=== PATIENT | female | born 1990 | race Caucasian/White ===

== ENCOUNTER 2017-09-01 20:01 | Emergency (ER) | payer BC ==
--- NOTE | 2017-09-01 20:18 | EDM.PDOC ---
ED HPI GENERAL MEDICAL PROBLEM - General Chief Complaint: General Stated Complaint: fever Time Seen by Provider: 09/01/17 20:15 Source of Information: Reports: Patient, Old Records ([facility] chart/EMR) History Limitations: Reports: No Limitations - History of Present Illness INITIAL COMMENTS - FREE TEXT/NARRATIVE: Patient drove herself to the emergency room for evaluation of fever and chills with temperature of 99 agrees with symptoms starting at about 16:00 hours. Patient did take 600 mg of ibuprofen at 17:30 hours. Note that the patient did have a minor head concussion on 08/30 after [place] off [place] tractor [place] with bruises of her buttocks region bilaterally. The patient was not evaluated until yesterday by her regular provider, La Mckenzie PA-C, at [facility] in [place]. She apparently had a borderline UA during that visit, although was not started on any medications. Wet prep was also collected at that time. She denies any current gross hematuria, dysuria, or other UTI symptoms. No recent history of abdominal pain, heartburn, nausea, diarrhea, melena, gross hematochezia, or any food intolerance, including fatty foods, etc.. The patient also denies any recent fever, cough, wheezing, dyspnea , etc.. She rates her pain from her bruises and also some nonspecific neck pain at 6/10. Onset: Today, Gradual Onset Date: 09/01/17 Onset Time: 16:00 Duration: Getting Worse Location: Reports: Lower Extremity, Left, Lower Extremity, Right. Denies: Head , Face, Neck, Chest, Abdomen, Back, Generalized, Radiates to Quality: Reports: Same as Previous Episode Severity: Moderate Improves with: Reports: Rest Worsens with: Reports: Movement Context: Reports: Trauma (As above). Denies: Sick Contact Associated Symptoms: Reports: Fever/Chills. 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 Denies: Allergic Rhinitis, Hard of Hearing, Impaired Vision, Retinal Detachment Cardiovascular History: Reports: None. Denies: Afib, Aneurysm, Arrhythmia, Blood Clots/VTE/DVT, CAD, Heart Murmur, High Cholesterol, Hypertension, Syncope Respiratory History: Reports: None. Denies: Asthma, COPD, Intubation, Previous , PE, Pneumothorax, Sleep Apnea Gastrointestinal History: Reports: None. Denies: Celiac Disease, Cholelithiasis , Chronic Constipation, Chronic Diarrhea, Fecal Incontinence, GERD, GI Bleed, Hepatitis, Inflammatory Bowel Disease, Irritable Bowel Syndrome, Jaundice, Pancreatitis, PUD Genitourinary History: Reports: UTI, Recurrent. Denies: Acute Renal Failure, Chronic Renal Insuffiency, Renal Calculus, STD, Urinary Incontinence ACIDITY TESTER History: Reports: Spontaneous : 4 Para: 3 LMP (Approximate): Other (See Below) Other ACIDITY TESTER History: SAB during first trimester requiring a D&C as below. Otherwise Full term without complications during pregnancies or deliveries. LMP on 08/21/17. Musculoskeletal History: Reports: Arthritis, Back Pain, Chronic, Fracture, Neck Pain, Chronic, Osteoarthritis, Other (See Below). Denies: Gout, RA, SLE Other Musculoskeletal History: Right distal radial ulnar fracture on 10/04/01 questionable borderline additional right distal humeral/elbow fracture at that time with no surgery required. Right proximal radial head/elbow fracture on 04/25 with closed reduction of dislocation at that time. SI joint discomfort with additional recurrent torticollis. Right-sided carpal tunnel syndrome. Neurological History: Reports: None, Concussion, Head Trauma, Other (See Below) . Denies: Cerebral Aneurysms, Headaches, Chronic, Migraines, Seizure Other Neuro History: Minor head concussion on 08/30/17 with no loss of consciousness. Psychiatric History: Reports: Anxiety, Depression. Denies: Abuse, Victim of, ADD, ADHD, Addiction, Psych Hospitalization(s), PTSD, Suicide Attempt, Suicidal Ideation Endocrine/Metabolic History: Reports: None. Denies: Diabetes, Gestational, Diabetes, Type I, Diabetes, Type II, Diabetes Mellitus, Type 3c, Hypothyroidism , IDDM Hematologic History: Reports: None. Denies: Anemia, Blood Transfusion(s), Iron Deficiency Immunologic History: Reports: None. Denies: AIDS, HIV, SLE Oncologic (Cancer) History: Reports: None. Denies: Basal Cell Carcinoma, Cervix , Hodgkin's Lymphoma, Leukemia, Lymphoma, Malignant Melanoma, Non-Hodgkin's Lymphoma, Squamous Cell Carcinoma Dermatologic History: Reports: Eczema, Other (See Below). Denies: Psoriasis Other Dermatologic History: Eczema treated with OTC medicines during the winter. - Infectious Disease History Infectious Disease History: Reports: Chicken Pox, Mononucleosis (Mononucleosis 3 at ages 18, 19, and 21.). Denies: C-Difficile, Measles, Meningitis, MRSA, Mumps, Pertussis (Whooping Cough), Rheumatic Fever, Rubella, Scarlet Fever, Shingles, VRE - Past Surgical History Head Surgeries/Procedures: Reports: None HEENT Surgical History: Denies: Adenoidectomy, Eye Surgery, Laser Surgery, LASIK , Myringotomy w Tube(s), Naso-Sinus Surgery, Oral Surgery, Tonsillectomy Cardiovascular Surgical History: Reports: None. Denies: Varicose Respiratory Surgical History: Reports: None. Denies: Thoracentesis GI Surgical History: Reports: None. Denies: Appendectomy, Cholecystectomy, Colonoscopy, EGD, Hernia, Abdominal, Hernia, Inguinal, Hernia Repair/Other Female Surgical History: Reports: D&C, Other (See Below). Denies: Tubal Ligation Other Female Surgeries/Procedures: D&C secondary to SAB at age 19 Endocrine Surgical History: Reports: None. Denies: Thyroid Biopsy Neurological Surgical History: Reports: None. Denies: C-Spine, Discectomy, Laminectomy, Lumbar Spine, Sacral Spine, Spinal Fusion, Thoracic Spine, Vertebroplasty Musculoskeletal Surgical History: Reports: None. Denies: Arthroscopic Procedure , Carpal Tunnel, Ganglion Cyst, Joint Replacement, ORIF, Shoulder Surgery Oncologic Surgical History: Reports: None Dermatological Surgical History: Reports: None - Past Imaging History Past Imaging History: Reports: Ultrasound (OB ultrasounds.), Venous Doppler ( Left leg venous Doppler study on 05/27/11) Social & Family History - Tobacco Use Smoking Status *Q: Current Every Day Smoker Tobacco Use Within Last Twelve Months: No Used Tobacco, but Quit: No Smoking Cessation Information Provided To Patient: No Second Hand Smoke Exposure: No Second Hand Smoke Education Provided: No - Caffeine Use Caffeine Use: Reports: Coffee (One cup per day), Soda (1 Soda per day), Tea ( One cup of tea per week). Denies: Energy Drinks - Alcohol Use Alcohol Use History: Yes Days Per Week of Alcohol Use: 0 Number of Drinks Per Day: 6 Number of Drinks Per Day Comment: Usually beer. No previous DWIs, problems with alcohol abuse, etc. Total Drinks Per Week: 0 Alcohol Use in Last Twelve Months: Yes Alcohol Use Frequency: Binges - Recreational Drug Use Recreational Drug Use: No Drug Use in Last 12 Months: No Recreational Drug Type: Denies: Amphetamines (Speed), Cocaine, Heroin, Inhalants (Glues, Solvents, Aerosols), LSD (Acid), Marijuana/Hashish, Methamphetamine, Methaqualone, Oxycodone - Living Situation & Occupation Living situation: Reports: Single (All pregnancies from same previous significant other.), with Family (With 3 children) Occupation: Employed ([employer]) ED ROS GENERAL - Review of Systems Review Of Systems: ROS reveals no pertinent complaints other than HPI. ED EXAM, GENERAL - Physical Exam Exam: See Below Exam Limited By: No Limitations General Appearance: Alert, WD/WN, No Apparent Distress, Anxious (Mild to moderate) Eye Exam: Bilateral Eye: EOMI, Normal Inspection (No nystagmus), PERRL Ears: Normal External Exam, Normal Canal, Hearing Grossly Normal, Normal TMs Nose: Normal Inspection, Normal Mucosa, No Blood Throat/Mouth: Normal Inspection, Normal Lips, Normal Teeth, Normal Gums, Normal Oropharynx, Normal Voice, No Airway Compromise Neck: Normal Inspection, Supple, Non-Tender, Full Range of Motion. No: Lymphadenopathy (L), Lymphadenopathy (R), Tender Lateral, Tender Midline Respiratory/Chest: No Respiratory Distress, Lungs Clear, Normal Breath Sounds, No Accessory Muscle Use, Chest Non-Tender. No: Pleural Rub, Retractions Cardiovascular: Normal Peripheral Pulses, Regular Rate, Rhythm, No Edema, No Gallop, No JVD, No Murmur, No Rub. No: Gallop/S3, Gallop/S4, Friction Rub Peripheral Pulses: 2+: Radial (L), Radial (R), Dorsalis Pedis (L), Dorsalis Pedis (R) GI/Abdominal: Normal Bowel Sounds, Soft, Non-Tender, No Organomegaly, No Distention, No Abnormal Bruit, No Mass. No: Guarding (Female) Exam: Deferred Rectal (Female) Exam: Deferred Back Exam: Normal Inspection, Full Range of Motion. No: CVA Tenderness (L), CVA Tenderness (R), Muscle Spasm Extremities: Normal Range of Motion, No Pedal Edema, Normal Capillary Refill, Leg Pain (Moderate localized tenderness over left buttocks with 16 cm moderate bruise in this location with additional 8 cm hematoma over the right buttocks) Neurological: Alert, Oriented, CN II-XII Intact, Normal Cognition, Normal Gait, Normal Reflexes, No Motor/Sensory Deficits Psychiatric: Anxious (Mild to moderate), Depressed Mood (Mild to moderate with adequate eye contact) Skin Exam: Ecchymosis (As above). No: Diaphoretic, Erythema, Increased Warmth, Wound/Incision Lymphatic: No Adenopathy Course - Vital Signs Last Recorded V/S: Last Vital Signs Temp 37.0 C 09/01/17 20:03 Pulse 93 09/01/17 20:03 Resp 18 09/01/17 20:03 BP 128/77 09/01/17 20:03 Pulse Ox 100 09/01/17 20:03 Vital Signs - 24 hr 09/01/17 20:03 Temperature [ 37.0 C Temporal] Pulse, 93 Peripheral [ Pulse Oximetry] Respiratory 18 Rate Blood Pressure 128/77 [Right Upper Arm] O2 Sat by Pulse 100 Oximetry - Orders/Labs/Meds Orders: Active Orders 24 hr Category Date Time Status CULTURE URINE [RM] Routine Lab 09/01/17 20:19 Ordered URINALYSIS W/MICROSCOPIC [UA W/MICROSCOPIC] [URIN] Lab 09/01/17 20:20 Ordered Routine Obtain Past Medical Record [OM.PC] Routine Oth 09/01/17 20:19 Active Labs: Laboratory Tests 09/01/17 09/01/17 09/01/17 Range/Units 20:20 20:35 20:35 WBC 8.8 (4.0-10.2) K/uL RBC 4.56 (3.77-5.09) M/uL Hgb 12.3 (11.7-15.5) g/dL Hct 37.6 (34.0-46.0) % MCV 82.5 L (84.0-98.0) fL MCH 27.0 L (28.2-33.3) pg MCHC 32.7 (31.7-36.0) g/dL RDW 13.9 (11.2-14.1) % Plt Count 307 (150-350) K/uL Neut % (Auto) 79.3 (45.0-80.0) % Lymph % (Auto) 11.0 (10.0-50.0) % [place] % (Auto) 8.5 (2.0-14.0) % Eos % (Auto) 1.0 (0.0-5.0) % Baso % (Auto) 0.2 (0.0-2.0) % Neut # (Auto) 7.00 (1.40-7.00) K/uL Lymph # (Auto) 0.97 (0.50-3.50) K/uL [place] # (Auto) 0.75 (0.00-1.00) K/uL Eos # (Auto) 0.09 (0.00-0.50) K/uL Baso # (Auto) 0.02 (0.00-0.20) K/uL Sodium 140 (136-145) mmol/L Potassium 3.5 (3.5-5.1) mmol/L Chloride 103 (98-107) mmol/L Carbon Dioxide 26.2 (21.0-32.0) mmol/L BUN 12 (7-18) mg/dL Creatinine 0.66 (0.51-1.17) mg/dL Est Cr Clr Drug Dosing 129.16 mL/min Estimated GFR (MDRD) > 60 mL/min Glucose 103 (74-106) mg/dL Calcium 8.6 (8.5-10.1) mg/dL Total Bilirubin 0.5 (0.2-1.0) mg/dL AST 17 (15-37) U/L ALT 21 (12-78) U/L Alkaline Phosphatase 84 (46-116) IU/L Total Protein 7.5 (6.4-8.2) g/dL Albumin 3.4 (3.4-5.0) g/dL Specimen Type Urincc Urine Color Yellow Urine Appearance Cloudy Urine pH 5.5 (5.0-9.0) Ur Specific [place] 1.025 (1.005-1.030) Urine Protein Negative (NEGATIVE) mg/dL Urine Glucose (UA) Negative (NEGATIVE) mg/dL Urine Ketones Trace H (NEGATIVE) mg/dL Urine Occult Blood Negative (NEGATIVE) Urine Nitrite Negative (NEGATIVE) Urine Bilirubin Negative (NEGATIVE) Urine Urobilinogen 0.2 (0.2-1.0) E.U./dL Ur Leukocyte Esterase Moderate H (NEGATIVE) Urine RBC 0-5 /HPF Urine WBC >100 H /HPF Ur Epithelial Cells Many H /LPF Urine Bacteria Many H (NONE TO FEW) /HPF Urine specimen set up for culture and sensitivity Meds: Medications Discontinued Medications Generic Name Dose Route Start Last Admin Trade Name Freq PRN Reason Stop Dose Admin Nitrofurantoin Macrocrystals 100 mg 09/02/17 20:58 Macrobid PO 09/02/17 20:59 ONETIME ONE Nitrofurantoin Macrocrystals 100 mg 09/01/17 21:14 Macrobid PO 09/01/17 21:15 ONETIME ONE - Radiology Interpretation Free Text/Narrative:: None Departure - Departure Time of Disposition: 21:35 Disposition: Home, Self-Care 01 Condition: Good Clinical Impression: Mixed anxiety depressive disorder, Head concussion UTI (urinary tract infection) Qualifiers: Urinary tract infection type: acute cystitis Hematuria presence: without hematuria Qualified Code(s): N30.00 - Acute cystitis without hematuria Contusion Qualifiers: Encounter type: initial encounter Contusion area: lower leg Laterality: left Qualified Code(s): S80.12XA - Contusion of left lower leg, initial encounter - Discharge Information Prescriptions: Fluconazole [Diflucan] 150 mg PO DAILY PRN #2 tab PRN Reason: Vaginitis Nitrofurantoin Monohyd/M-Cryst [Macrobid 100 mg Capsule] 100 mg PO BIDMEALS #20 capsule Instructions: Urinary Tract Infection, Adult, [id number] Referrals: La Godoy PA-C [Primary Care Provider] - Forms: ED Department Discharge Additional Instructions: 1. Followup with your regular provider in 10-14 days as directed. Bring these discharge instructions with you to that visit. 2. BenGay or equivalent, heating pad, and/or ice packs as directed. 3. Tylenol 650 mg by mouth every 4 hours and/or OTC ibuprofen 2-3 tabs by mouth every 6 hours with food as directed./needed. 4. Urine tests should be repeated at follow up visit with possible repeat urine culture,etc. at that time. Today's urine culture is pending with results in about 2-3 days. We will call you, if we need to change your therapy. 5. Immediately after this visit verify that your cellular telephone's voicemail has been activated and is empty. Also verify that your home telephone 's answering machine is operating properly and has space to receive messages. Note that it is sometimes necessary for us to be able to contact you at a later date to discuss your medical care. - Problem List & Annotations (1) UTI (urinary tract infection) SNOMED Code(s): 26338002 Code(s): N39.0 - URINARY TRACT INFECTION, SITE NOT SPECIFIED Status: Acute Priority: High Current Visit: Yes Onset Date: 09/01/17 Annotation/ Comment:: Macrobid started in the emergency room. Close follow-up by regular provider as per discharge instructions. Urine Specimen set up for culture and sensitivity. Qualifiers: Urinary tract infection type: acute cystitis Hematuria presence: without hematuria Qualified Code(s): N30.00 - Acute cystitis without hematuria (2) Mixed anxiety depressive disorder SNOMED Code(s): 416104686 Code(s): F41.8 - OTHER SPECIFIED ANXIETY DISORDERS Status: Acute Priority : Medium Current Visit: Yes Onset Date: ~08/31/17 Annotation/Comment:: She was started on Lexapro by her regular provider yesterday. Close observation through that office. Note the patient recently broke up with her boyfriend. No suicidal ideation, etc. Emotional support provided. (3) Contusion SNOMED Code(s): 086685284 Code(s): T14.8XXA - OTHER INJURY OF UNSPECIFIED BODY REGION, INITIAL ENCOUNTER Status: Acute Priority: Medium Current Visit: Yes Onset Date: 08/30/17 Annotation/Comment:: Symptomatic relief as per discharge instructions. Qualifiers: Encounter type: initial encounter Contusion area: lower leg Laterality: left Qualified Code(s): S80.12XA - Contusion of left lower leg, initial encounter (4) Head concussion SNOMED Code(s): 900839585 Code(s): S06.0X9A - CONCUSSION W LOSS OF CONSCIOUSNESS OF UNSP DURATION, INIT Status: Acute Priority: Medium Current Visit: Yes Onset Date: 08/30 Annotation/Comment:: Mild head concussion with initial evaluation by her regular provider yesterday as above. She has already received head precautions with no neurological deficits, etc. Improving nonspecific neck pain with current ibuprofen therapy. She already has a work excuse for [employer]. Qualifiers: Encounter type: initial encounter Loss of consciousness presence/duration: without LOC Qualified Code(s): S06.0X0A - Concussion without loss of consciousness, initial encounter - Problem List Review Problem List Initiated/Reviewed/Updated: Yes - My Orders Last 24 Hours: My Active Orders 09/01/17 20:19 CULTURE URINE [RM] Routine Obtain Past Medical Record [OM.PC] Routine 09/01/17 20:20 URINALYSIS W/MICROSCOPIC [UA W/MICROSCOPIC] [URIN] Routine - Assessment/Plan Last 24 Hours: My Active Orders 09/01/17 20:19 CULTURE URINE [RM] Routine Obtain Past Medical Record [OM.PC] Routine 09/01/17 20:20 URINALYSIS W/MICROSCOPIC [UA W/MICROSCOPIC] [URIN] Routine Assessment:: As above Plan: As above. Extensive precautions were given to the patient, who is in agreement with the treatment plan. See Patient Instructions for further treatment and plan.
[2017-09-01 20:57] LABS: CHLORIDE,CL 103 mmol/L (98-107); SODIUM,NA 140 mmol/L (136-145)
[2017-09-01] MEDS: Nitrofurantoin Monohydrate/Macrocrystalline 100 MG Cap PO ONE (21:18)
[2017-09-02] MEDS ORDERED: Nitrofurantoin Monohydrate/Macrocrystalline 100 MG Cap PO ONE (20:58)
== END 2017-09-01 21:30 | disposition home or self-care (01) ==
LOC: LL.ED 20:01
DX: S30.0XXA Contusion of lower back and pelvis, initial encounter (principal); S80.12XA Contusion of left lower leg, initial encounter; S06.0X9A Concussion with loss of consciousness of unspecified duration, initial encounter; N30.00 Acute cystitis without hematuria; F17.210 Nicotine dependence, cigarettes, uncomplicated; F41.8 Other specified anxiety disorders; V84.9XXA Unspecified occupant of special agricultural vehicle injured in nontraffic accident, initial encounter; Z91.030 Bee allergy status
CPT/HCPCS: 36415; 80053; 81001; 85025; 87086; 99284; A9270-GY

== ENCOUNTER 2020-05-12 09:13 | Emergency (ER) | payer MEDICAID ==
--- NOTE | 2020-05-12 09:18 | EDM.PDOC ---
ED HPI GENERAL MEDICAL PROBLEM - General Chief Complaint: Gastrointestinal Problem Stated Complaint: N/V/D Time Seen by Provider: 05/12/20 09:13 Source of Information: Reports: Patient, Old Records ([facility] chart/EMR), Significant Other History Limitations: Reports: No Limitations - History of Present Illness INITIAL COMMENTS - FREE TEXT/NARRATIVE: The patient was brought to the emergency room via private automobile by her significant other for evaluation of nonspecific nausea starting at about 9 PM yesterday evening with recurrent episodes of emesis and loose watery stools on an every 3060-minute basis since 11 PM last night. She is unable to keep any fluids or food down at this time. Possible history of fever and chills, however temperature not measured with no recent antipyretic medications. Patient did try to take Pepto Bismol, however she had an immediate emesis shortly thereafter. Her 3 children had similar type symptoms earlier in the week and are completely nonsymptomatic at this time. No known exposure to food poisoning or other infection with the patient receiving her influenza booster this season. No recent history of heartburn, hematemesis, melena, gross hematochezia, or any food intolerance, including fatty foods, etc. with only nonspecific 3/10 abdominal discomfort from her recurrent emeses. The patient also denies any recent cough, wheezing, dyspnea, etc.. Onset: Gradual Onset Date: 05/11/20 Onset Time: 21:00 Duration: Constant, Getting Worse Location: Reports: Abdomen (Nonspecific abdominal from her recurrent emesis) Quality: Reports: Ache, Same as Previous Episode Severity: Severe (Nausea, emesis, and diarrhea as above) Improves with: Reports: None Worsens with: Reports: None Context: Reports: Sick Contact (Children as above). Denies: Trauma Associated Symptoms: Reports: Fever/Chills, Nausea/Vomiting. Denies: Confusion, Chest Pain, Cough, Diaphoresis, Headaches, Loss of Appetite, Malaise, Rash, Seizure, Shortness of Breath, Syncope, Weakness Treatments OCEANOLOGIST: Reports: Other Medication(s) (As above) Generalized Pain Score (Numeric/FACES): 3 - Related Data Allergies Allergy/AdvReac Type Severity Reaction Status Date / Time bee stings Allergy Intermediate Swelling Uncoded 05/12/20 10:18 Home Meds: Home Meds ALPRAZolam [Xanax] 1 tab PO DAILY 05/12/20 [History] Promethazine [Phenergan] 25 mg PO Q6H PRN #10 tab 05/12/20 [Rx] Past Medical History HEENT History: Reports: Otitis Media. Denies: Allergic Rhinitis, Cataract, Glaucoma, Hard of Hearing, Impaired Vision, Macular Degeneration, Retinal Detachment Cardiovascular History: Reports: None. Denies: Afib, Aneurysm, Arrhythmia, Blood Clots/VTE/DVT, CAD, Heart Murmur, High Cholesterol, Hypertension, PA, Syncope Respiratory History: Reports: None. Denies: Asthma, Bronchitis, Recurrent, COPD, Intubation, Difficult, Intubation, Previous, PE, Pneumonia, Recurrent, Pneumothorax, Sleep Apnea, TB Gastrointestinal History: Reports: None. Denies: Celiac Disease, Cholelithiasis, Chronic Constipation, Chronic Diarrhea, Fecal Incontinence, Gastritis, GERD, GI Bleed, Hepatitis, Irritable Bowel Syndrome, Jaundice, Pancreatitis Genitourinary History: Reports: UTI, Recurrent. Denies: Acute Renal Failure, Chronic Renal Insuffiency, Renal Calculus, Retention, Urinary, STD, Urinary Incontinence PACKING CLERK History: Reports: , Spontaneous : 4 Para: 3 Other PACKING CLERK History: SAB during first trimester requiring a D&C as below. Otherwise Full term without complications during pregnancies or deliveries. Musculoskeletal History: Reports: Arthritis, Back Pain, Chronic, Fracture, Neck Pain, Chronic, Osteoarthritis, Other (See Below). Denies: Gout, RA, SLE Other Musculoskeletal History: Right distal radial ulnar fracture on 10/04/01 with questionable borderline additional right distal humeral/elbow fracture at that time with no surgery required. Right proximal radial head/elbow fracture on 04/25/11 with closed reduction of dislocation at that time. SI joint discomfort with additional recurrent torticollis. Right-sided carpal tunnel syndrome. Neurological History: Reports: None, Concussion, Head Trauma, Other (See Below). Denies: Cerebral Aneurysms, CVA, Headaches, Chronic, Migraines, MS, Neurop athy, Peripheral, Parkinson's, Seizure, TIA, Vertigo Other Neuro History: Minor head concussion on 08/30/17 with no loss of consciousness. Psychiatric History: Reports: Anxiety, Depression. Denies: Abuse, Victim of, ADD, ADHD, Addiction, Psych Hospitalization(s), PTSD, Suicide Attempt, Suicidal Ideation Endocrine/Metabolic History: Reports: None. Denies: Diabetes, Gestational, Diabetes, Type I, Diabetes, Type II, Diabetes Mellitus, Type 3c, Hypothyroidism, Obesity/BMI 30+ Hematologic History: Reports: None. Denies: Anemia, Blood Transfusion(s), Iron Deficiency Immunologic History: Reports: None. Denies: AIDS, HIV, SLE Oncologic (Cancer) History: Reports: None. Denies: Breast, Cervix, Hodgkin's Lymphoma, Leukemia, Lymphoma, Malignant Melanoma, Non-Hodgkin's Lymphoma, Ovarian, Squamous Cell Carcinoma Dermatologic History: Reports: Eczema, Other (See Below). Denies: Psoriasis Other Dermatologic History: Eczema treated with OTC medicines during the winter. - Infectious Disease History Infectious Disease History: Reports: Chicken Pox, Mononucleosis. Denies: C- Difficile, Measles, Meningitis, MRSA, Mumps, Novel Coronavirus, Pertussis (Whooping Cough), Rubella, Scarlet Fever, Shingles, VRE - Past Surgical History Head Surgeries/Procedures: Reports: None HEENT Surgical History: Reports: None. Denies: Adenoidectomy, Cataract Surgery, Eye Surgery, LASIK, Myringotomy w Tube(s), Naso-Sinus Surgery, Oral Surgery, Tonsillectomy Cardiovascular Surgical History: Reports: None. Denies: Varicose Respiratory Surgical History: Reports: None. Denies: Thoracentesis GI Surgical History: Reports: None. Denies: Appendectomy, Colonoscopy, EGD, Hernia, Abdominal, Hernia, Inguinal, Hernia Repair/Other Female Surgical History: Reports: D&C, Other (See Below). Denies: Section, Tubal Ligation Other Female Surgeries/Procedures: D&C secondary to SAB at age 19 Endocrine Surgical History: Reports: None Neurological Surgical History: Reports: None. Denies: C-Spine, Discectomy, Laminectomy, Lumbar Spine, Sacral Spine, Spinal Fusion, Thoracic Spine, Vertebroplasty Musculoskeletal Surgical History: Reports: None. Denies: Arthroscopic Procedure, Carpal Tunnel, Ganglion Cyst, Joint Replacement, ORIF, Shoulder Surgery Oncologic Surgical History: Reports: None Dermatological Surgical History: Reports: None - Past Imaging History Past Imaging History: Reports: Ultrasound (OB ultrasounds.), Venous Doppler (Left leg venous Doppler study on 05/27/11) Social & Family History - Tobacco Use Tobacco Use Status *Q: Never Tobacco User Tobacco Use Within Last Twelve Months: No Used Tobacco, but Quit: No Smoking Cessation Information Provided To Patient: No Second Hand Smoke Exposure: Yes Source of Second Hand Smoke Exposure: Significant other smokes Second Hand Smoke Education Provided: Yes - Caffeine Use Caffeine Use: Reports: Coffee (One cup per day), Soda (1 soda per day), Tea (One cup per week). Denies: Energy Drinks - Alcohol Use Alcohol Use History: Yes Days Per Week of Alcohol Use: 0 Number of Drinks Per Day: 6 Number of Drinks Per Day Comment: Usually beer room once per month. No previous DWIs, problems with alcohol abuse, etc. 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 ED EXAM, GI/ABD - Physical Exam Exam: See Below Exam Limited By: No Limitations General Appearance: Alert, WD/WN, No Apparent Distress Eyes: Bilateral: Normal Appearance (No vertigo or nystagmus), EOMI (PERRLA) Ears: Normal External Exam, Normal Canal, Hearing Grossly Normal, Normal TMs Nose: Normal Inspection, Normal Mucosa, No Blood Throat/Mouth: Normal Inspection, Normal Lips, Normal Teeth, Normal Gums, Normal Oropharynx, Normal Voice, No Airway Compromise. No: Dysphagia, Perioral Cyanosis Head: Atraumatic, Normocephalic. No: Facial Swelling, Facial Tenderness, Sinus Tenderness Neck: Normal Inspection, Supple, Non-Tender, Full Range of Motion. No: Lymphadenopathy (L), Lymphadenopathy (R), Thyromegaly Respiratory/Chest: No Respiratory Distress, Lungs Clear, Normal Breath Sounds, No Accessory Muscle Use, Chest Non-Tender. No: Pleural Rub, Retractions Cardiovascular: Normal Peripheral Pulses, Regular Rate, Rhythm, No Edema, No G allop, No JVD, No Murmur, No Rub. No: Gallop/S3, Gallop/S4, Friction Rub GI/Abdominal Exam: Normal Bowel Sounds, Soft, Non-Tender, No Organomegaly, No Distention, No Abnormal Bruit, No Mass. No: Guarding (Female) Exam: Deferred Rectal (Female) Exam: Deferred Back Exam: Normal Inspection, Full Range of Motion. No: CVA Tenderness (L), CVA Tenderness (R), Muscle Spasm Extremities: Normal Inspection, Normal Range of Motion, Non-Tender, No Pedal Edema, Normal Capillary Refill. No: Sofía's Sign Neurological: Alert, Oriented, CN II-XII Intact, Normal Cognition, Normal Gait, No Motor/Sensory Deficits, Other (No clinical orthostasis) Psychiatric: Normal Affect Skin Exam: Warm, Dry, Intact, Normal Color, No Rash, Tattoo(s) (Multiple). No: Diaphoretic, Wound/Incision Lymphatic: No Adenopathy Course - Vital Signs Last Recorded V/S: Last Vital Signs Temp 36.9 C 05/12/20 09:30 Pulse 72 05/12/20 10:26 Resp 16 05/12/20 10:26 BP 111/64 05/12/20 10:26 Pulse Ox 100 05/12/20 10:26 Vital Signs - 24 hr 05/12/20 05/12/20 05/12/20 09:30 09:45 10:00 Temperature [ 36.9 C Temporal] Pulse, 88 81 79 Peripheral [ Pulse Oximetry] Respiratory 17 16 16 Rate Blood Pressure 127/74 119/67 117/66 [Left Upper Arm ] O2 Sat by Pulse 99 99 100 Oximetry 05/12/20 10:26 Temperature [ Temporal] Pulse, 72 Peripheral [ Pulse Oximetry] Respiratory 16 Rate Blood Pressure 111/64 [Left Upper Arm ] O2 Sat by Pulse 100 Oximetry - Orders/Labs/Meds Orders: Active Orders 24 hr Category Date Time Status Peripheral IV Care [RC] . DIRECTED Care 05/12/20 09:19 Active Nothing Per Oral Diet [DIET] Diet 05/12/20 Breakfast Active Abdomen Series w Chest 1V [CR] Stat Exams 05/12/20 09:19 Taken CULTURE URINE [RM] Stat Lab 05/12/20 09:19 Ordered UA W/MICROSCOPIC [URIN] Stat Lab 05/12/20 09:19 Ordered Sodium Chloride 0.9% [Saline Flush] Med 05/12/20 09:19 Active 10 ml FLUSH ASDIRECTED PRN Isolation [COMM] Routine Oth 05/12/20 09:21 Active Obtain Past Medical Record [OM.PC] Urgent Oth 05/12/20 09:19 Active Peripheral IV Insertion Adult [OM.PC] Stat Oth 05/12/20 09:19 Ordered Resuscitation Status Stat Resus Stat 05/12/20 09:19 Ordered Medication Orders Sodium Chloride (Sodium Chloride 0.9% 10 Ml Syringe) 10 ml FLUSH ASDIRECTED PRN PRN Reason: Keep Vein Open Last Admin: 05/12/20 09:41 Dose: 10 ml Documented by: PAUL Labs: Laboratory Tests 05/12/20 05/12/20 05/12/20 Range/Units 09:30 09:35 09:35 WBC 16.2 H (4.0-10.2) K/uL RBC 5.15 H (3.77-5.09) M/uL Hgb 13.6 (11.7-15.5) g/dL Hct 41.0 (34.0-46.0) % MCV 79.6 L (84.0-98.0) fL MCH 26.4 L (28.2-33.3) pg MCHC 33.2 (31.7-36.0) g/dL RDW 14.1 (11.2-14.1) % Plt Count 380 H (150-350) K/uL Neut % (Auto) 90.2 H (45.0-80.0) % Lymph % (Auto) 5.4 L (10.0-50.0) % [place] % (Auto) 3.5 (2.0-14.0) % Eos % (Auto) 0.8 (0.0-5.0) % Baso % (Auto) 0.1 (0.0-2.0) % Neut # (Auto) 14.61 H (1.40-7.00) K/uL Lymph # (Auto) 0.88 (0.50-3.50) K/uL [place] # (Auto) 0.56 (0.00-1.00) K/uL Eos # (Auto) 0.13 (0.00-0.50) K/uL Baso # (Auto) 0.02 (0.00-0.20) K/uL PT (9.5-12.0) SEC INR APTT (24.5-32.8) SEC Sodium (136-145) mmol/L Potassium (3.5-5.1) mmol/L Chloride (98-107) mmol/L Carbon Dioxide (21.0-32.0) mmol/L BUN (7-18) mg/dL Creatinine (0.51-1.17) mg/dL Est Cr Clr Drug Dosing Estimated GFR (MDRD) mL/min Glucose (70-99) mg/dL Lactic Acid (0.4-2.0) mmol/L Uric Acid (2.6-7.2) mg/dL Calcium (8.5-10.1) mg/dL Magnesium (1.8-2.4) mg/dL Total Bilirubin (0.2-1.0) mg/dL AST (15-37) U/L ALT (12-78) U/L Alkaline Phosphatase (46-116) IU/L Total Protein (6.4-8.2) g/dL Albumin (3.4-5.0) g/dL Amylase 43 (25-115) U/L Lipase (73-393) U/L HCG, Qual (NEGATIVE) SARS-CoV-2 RNA (BEL) Negative (NEGATIVE) 05/12/20 05/12/20 05/12/20 Range/Units 09:35 09:35 09:35 WBC (4.0-10.2) K/uL RBC (3.77-5.09) M/uL Hgb (11.7-15.5) g/dL Hct (34.0-46.0) % MCV (84.0-98.0) fL MCH (28.2-33.3) pg MCHC (31.7-36.0) g/dL RDW (11.2-14.1) % Plt Count (150-350) K/uL Neut % (Auto) (45.0-80.0) % Lymph % (Auto) (10.0-50.0) % [place] % (Auto) (2.0-14.0) % Eos % (Auto) (0.0-5.0) % Baso % (Auto) (0.0-2.0) % Neut # (Auto) (1.40-7.00) K/uL Lymph # (Auto) (0.50-3.50) K/uL [place] # (Auto) (0.00-1.00) K/uL Eos # (Auto) (0.00-0.50) K/uL Baso # (Auto) (0.00-0.20) K/uL PT 9.7 (9.5-12.0) SEC INR 1.0 APTT 25.0 (24.5-32.8) SEC Sodium 139 (136-145) mmol/L Potassium 3.7 (3.5-5.1) mmol/L Chloride 103 (98-107) mmol/L Carbon Dioxide 28.3 (21.0-32.0) mmol/L BUN 11 (7-18) mg/dL Creatinine 0.64 (0.51-1.17) mg/dL Est Cr Clr Drug Dosing TNP Estimated GFR (MDRD) > 60 mL/min Glucose 97 (70-99) mg/dL Lactic Acid 1.4 (0.4-2.0) mmol/L Uric Acid 3.8 (2.6-7.2) mg/dL Calcium 8.4 L (8.5-10.1) mg/dL Magnesium 1.7 L (1.8-2.4) mg/dL Total Bilirubin 0.6 (0.2-1.0) mg/dL AST 17 (15-37) U/L ALT 23 (12-78) U/L Alkaline Phosphatase 92 (46-116) IU/L Total Protein 7.7 (6.4-8.2) g/dL Albumin 3.6 (3.4-5.0) g/dL Amylase (25-115) U/L Lipase 42 L (73-393) U/L HCG, Qual (NEGATIVE) SARS-CoV-2 RNA (BEL) (NEGATIVE) 05/12/20 Range/Units 09:35 WBC (4.0-10.2) K/uL RBC (3.77-5.09) M/uL Hgb (11.7-15.5) g/dL Hct (34.0-46.0) % MCV (84.0-98.0) fL MCH (28.2-33.3) pg MCHC (31.7-36.0) g/dL RDW (11.2-14.1) % Plt Count (150-350) K/uL Neut % (Auto) (45.0-80.0) % Lymph % (Auto) (10.0-50.0) % [place] % (Auto) (2.0-14.0) % Eos % (Auto) (0.0-5.0) % Baso % (Auto) (0.0-2.0) % Neut # (Auto) (1.40-7.00) K/uL Lymph # (Auto) (0.50-3.50) K/uL [place] # (Auto) (0.00-1.00) K/uL Eos # (Auto) (0.00-0.50) K/uL Baso # (Auto) (0.00-0.20) K/uL PT (9.5-12.0) SEC INR APTT (24.5-32.8) SEC Sodium (136-145) mmol/L Potassium (3.5-5.1) mmol/L Chloride (98-107) mmol/L Carbon Dioxide (21.0-32.0) mmol/L BUN (7-18) mg/dL Creatinine (0.51-1.17) mg/dL Est Cr Clr Drug Dosing Estimated GFR (MDRD) mL/min Glucose (70-99) mg/dL Lactic Acid (0.4-2.0) mmol/L Uric Acid (2.6-7.2) mg/dL Calcium (8.5-10.1) mg/dL Magnesium (1.8-2.4) mg/dL Total Bilirubin (0.2-1.0) mg/dL AST (15-37) U/L ALT (12-78) U/L Alkaline Phosphatase (46-116) IU/L Total Protein (6.4-8.2) g/dL Albumin (3.4-5.0) g/dL Amylase (25-115) U/L Lipase (73-393) U/L HCG, Qual Negative (NEGATIVE) SARS-CoV-2 RNA (BEL) (NEGATIVE) Urine specimen could not be obtained. Meds: Medications Generic Name Dose Route Start Last Admin Trade Name Freq PRN Reason Stop Dose Admin Sodium Chloride 10 ml 05/12/20 09:19 05/12/20 09:41 Sodium Chloride 0.9% 10 Ml Syringe FLUSH 10 ml ASDIRECTED PRN Administration Keep Vein Open Discontinued Medications Generic Name Dose Route Start Last Admin Trade Name Freq PRN Reason Stop Dose Admin Famotidine 40 mg 05/12/20 09:19 05/12/20 09:41 Famotidine 20 Mg/2 Ml Sdv IVPUSH 05/12/20 09:20 40 mg ONETIME ONE Administration Lactated Ringer's 1,000 mls @ 999 mls/hr 05/12/20 09:19 05/12/20 09:41 Ringers, Lactated IV 05/12/20 10:19 999 mls/hr .BOLUS ONE Administration Magnesium Oxide 800 mg 05/12/20 11:07 05/12/20 11:14 Magnesium Oxide 400 Mg Tab PO 05/12/20 11:08 800 mg ONETIME ONE Administration Ondansetron HCl 4 mg 05/12/20 09:19 05/12/20 09:41 Ondansetron 4 Mg/2 Ml Sdv IVPUSH 05/12/20 09:20 4 mg ONETIME ONE Administration Pantoprazole Sodium 40 mg 05/12/20 09:19 05/12/20 09:41 Pantoprazole 40 Mg Vial IVPUSH 05/12/20 09:20 40 mg ONETIME ONE Administration - Radiology Interpretation Free Text/Narrative:: Acute abdominal x-rays were normal with exception of mild to moderate pulmonary obstructive disease without cardiomegaly, CHF, pulmonary infiltrates, pneumothorax, free air, fluid levels, ileus, obstruction, etc. Departure - Departure Time of Disposition: 11:41 Disposition: Home, Self-Care 01 Clinical Impression: Influenza B, Gastroenteritis, Tobacco abuse counseling, Hypomagnesemia, Hypocalcemia - Discharge Information *PRESCRIPTION DRUG MONITORING PROGRAM REVIEWED*: Not Applicable *COPY OF PRESCRIPTION DRUG MONITORING REPORT IN PATIENT BIBI: Not Applicable Prescriptions: Promethazine [Phenergan] 25 mg PO Q6H PRN #10 tab PRN Reason: Nausea/emesis Instructions: Preventing Exposure to Secondhand Smoke, Teen, Steps to Quit Smoking, [id number], Health Risks of Smoking, Influenza, Adult, [id number], Viral Gastroenteritis, Adult, [id number], Preventing Exposure to Secondhand Smoke, Adult Referrals: PCP,None [Primary Care Provider] - Forms: ED Department Discharge, ED Return to Work/School Form Additional Instructions: 1. Follow up with your regular provider in 2 days as discussed with recommended repeat CBC, comprehensive metabolic panel and magnesium level. Bring these discharge instructions with you to that visit. 2. [place] diet including encouragement of oral fluids such as sports drinks, etc. for 24-48 hours as directed. Advance to regular diet as tolerated thereafter. 3. Hygiene precautions as discussed both at home and after you go to work 4. Stop all tobacco exposure J CARLOS as directed with counselling, information, etc. given at discharge. 5. Work excuse- See Form 6. Immediately after this visit verify that your cellular telephone's voicemail has been activated and is empty. Also verify that your home telephone's an [employer] machine is operating properly and has space to receive messages. Note that it is sometimes necessary for us to be able to contact you at a later date to discuss your medical care. 7. Please remember that we are ALWAYS here for you and want to answer any questions you may have. Feel free to call the hospital any time and we call you back J CARLOS. Sepsis Event Note (ED) - Focused Exam Vital Signs: Vital Signs Temp Pulse Resp BP Pulse Ox 05/12/20 10:26 72 16 111/64 100 05/12/20 10:00 79 16 117/66 100 05/12/20 09:45 81 16 119/67 99 05/12/20 09:30 36.9 C 88 17 127/74 99 - Problem List & Annotations (1) Influenza B SNOMED Code(s): 28091122 Code(s): J10.1 - FLU DUE TO OTH IDENT INFLUENZA VIRUS W OTH RESP MANIFEST Status: Acute Priority: High Current Visit: Yes Onset Date: 05/11/20 Annotation/Comment:: Patient did receive her influenza booster this season. Various therapeutic options were discussed with the patient and her significant other, who decided against initiation of Tamiflu, which is reasonable, especially in light of her children being completely nonsymptomatic at this time. Hygiene precautions were discussed. Work excuse was provided. (2) Gastroenteritis SNOMED Code(s): 00596006 Code(s): K52.9 - NONINFECTIVE GASTROENTERITIS AND COLITIS, UNSPECIFIED Status: Acute Priority: High Current Visit: Yes Onset Date: 05/11/20 Annotation/Comment:: 1 L IV bolus of lactated Ringer's with additional high-dose IV Pepcid and ibuprofen given as GI prophylaxis. IV Zofran was also given. Note improved symptoms prior to discharge with no nausea, emesis, or diarrhea during her emergency room care. Symptoms likely secondary to influenza B and/or additional viral GE infection. Note moderate leukocytosis likely secondary to stress reaction with patient afebrile with negative lactic acid level and COVID- 19 rapid test today. Symptomatic relief as per discharge instructions with sedation precautions for her Phenergan extensively discussed. Close follow-up by her regular provider secondary to her leukocytosis as above. (3) Hypocalcemia SNOMED Code(s): 7114178 Code(s): E83.51 - HYPOCALCEMIA Status: Acute Priority: Medium Current Visit: Yes Onset Date: 05/12/20 Annotation/Comment:: Observe for now. Likely secondary to her nausea/emesis and diarrhea. (4) Hypomagnesemia SNOMED Code(s): 450957196 Code(s): E83.42 - HYPOMAGNESEMIA Status: Acute Priority: Medium Current Visit: Yes Onset Date: 05/12/20 Annotation/Comment:: Likely secondary to her nausea/emesis and diarrhea. Magnesium oxide 800 mg given orally prior to patient's discharge with no further medications at this time. Close follow-up by regular provider as per discharge instructions. (5) Tobacco abuse counseling SNOMED Code(s): 054814225, 949279208, 514334924 Code(s): Z71.6 - TOBACCO ABUSE COUNSELING Status: Chronic Priority: Medium Current Visit: Yes Annotation/Comment:: Tobacco cessation for her significant other strongly encouraged with children in the home. Tobacco cessation information provided. - Problem List Review Problem List Initiated/Reviewed/Updated: Yes - My Orders Last 24 Hours: My Active Orders 05/12/20 Breakfast Nothing Per Oral Diet [DIET] 05/12/20 09:19 Peripheral IV Care [RC] . DIRECTED Abdomen Series w Chest 1V [CR] Stat CULTURE URINE [RM] Stat UA W/MICROSCOPIC [URIN] Stat Sodium Chloride 0.9% [Saline Flush] 10 ml FLUSH ASDIRECTED PRN Obtain Past Medical Record [OM.PC] Urgent Peripheral IV Insertion Adult [OM.PC] Stat Resuscitation Status Stat 05/12/20 09:21 Isolation [COMM] Routine - Assessment/Plan Last 24 Hours: My Active Orders 05/12/20 Breakfast Nothing Per Oral Diet [DIET] 05/12/20 09:19 Peripheral IV Care [RC] . DIRECTED Abdomen Series w Chest 1V [CR] Stat CULTURE URINE [RM] Stat UA W/MICROSCOPIC [URIN] Stat Sodium Chloride 0.9% [Saline Flush] 10 ml FLUSH ASDIRECTED PRN Obtain Past Medical Record [OM.PC] Urgent Peripheral IV Insertion Adult [OM.PC] Stat Resuscitation Status Stat 05/12/20 09:21 Isolation [COMM] Routine Assessment:: As above Plan: As above. Extensive precautions were given to the patient and her significant other, who are in agreement with the treatment plan. See Patient Instructions for further treatment and plan.
[2020-05-12] MEDS: Lactated Ringers 1,000 ML IV ONE (09:41)
[2020-05-12] MEDS: Sodium Chloride 0.9% 10 ML Syringe FLUSH PRN (09:41)
[2020-05-12] MEDS: Ondansetron 4 MG/2 ML SDV IVPUSH ONE (09:41)
[2020-05-12] MEDS: Famotidine 20 MG/2 ML SDV IVPUSH ONE (09:41)
[2020-05-12] MEDS: Pantoprazole 40 MG Vial IVPUSH ONE (09:41)
[2020-05-12 09:59] LABS: CHLORIDE,CL 103 mmol/L (98-107); SODIUM,NA 139 mmol/L (136-145)
[2020-05-12] MEDS: Magnesium Oxide 400 MG Tab PO ONE (11:14)
== END 2020-05-12 11:40 | disposition home or self-care (01) ==
LOC: LL.ED 09:13
DX: J11.2 Influenza due to unidentified influenza virus with gastrointestinal manifestations (principal); E83.42 Hypomagnesemia; E83.51 Hypocalcemia; M19.90 Unspecified osteoarthritis, unspecified site; Z71.6 Tobacco abuse counseling; Z91.030 Bee allergy status; Z20.822 Contact with and (suspected) exposure to COVID-19
CPT/HCPCS: 36415; 74022; 80053; 82150; 83605; 83690; 83735; 84550; 84703; 85025; 85610; 85730; 87804; 96374; 96375; 99284; 99284-25; A9270-GY; C9113; J2405; J3490; J7120; U0002

== ENCOUNTER 2020-12-08 14:45 | Emergency (ER) | payer MEDICAID ==
--- NOTE | 2020-12-08 15:55 | EDM.PDOC ---
ED HPI GENERAL MEDICAL PROBLEM - General Chief Complaint: General Stated Complaint: dizziness Time Seen by Provider: 12/08/20 15:15 Source of Information: Reports: Patient History Limitations: Reports: No Limitations - History of Present Illness INITIAL COMMENTS - FREE TEXT/NARRATIVE: Patient referred to ER for complaint of intermittent dizziness. Describes having episodes of feeling hot/light headed, usually once a day, for approx two weeks. Better when she lays down/rests. Eventually resolves but can take awhile. No nausea/emesis. No fevers. Did have her Cymbalta dose increased 3 weeks ago. No noted . No new supplements. No falls. Has chronic ear discomfort bilaterally that waxes/wanes and is waiting to see ENT for that. Hx OM as child. No palpitations/chest pain. No other changes. Has had intermittent dizziness in past, but not to this degree and no accompanying hot flashes. - Related Data Allergies Allergy/AdvReac Type Severity Reaction Status Date / Time bee stings Allergy Intermediate Swelling Uncoded 12/08/20 14:45 Home Meds: Home Meds DULoxetine [Cymbalta] 30 mg PO DAILY #30 cap 12/08/20 [Rx] Past Medical History HEENT History: Reports: Otitis Media, Other (See Below) (Clenches teeth at night) Cardiovascular History: Reports: None Respiratory History: Reports: None Gastrointestinal History: Reports: None Genitourinary History: Reports: UTI, Recurrent SOLUTIONS ANALYST History: Reports: , Spontaneous Other SOLUTIONS ANALYST History: SAB during first trimester requiring a D&C as below. Otherwise Full term without complications during pregnancies or deliveries. Musculoskeletal History: Reports: Arthritis, Back Pain, Chronic, Fracture, Neck Pain, Chronic, Osteoarthritis, Other (See Below) Other Musculoskeletal History: Right distal radial ulnar fracture on 10/04/01 with questionable borderline additional right distal humeral/elbow fracture at that time with no surgery required. Right proximal radial head/elbow fracture on 04/25/11 with closed reduction of dislocation at that time. SI joint discomfort with additional recurrent torticollis. Right-sided carpal tunnel syndrome. Neurological History: Reports: None, Concussion, Head Trauma, Other (See Below) Other Neuro History: Minor head concussion on 08/30/17 with no loss of consciousness. Psychiatric History: Reports: Anxiety, Depression Endocrine/Metabolic History: Reports: None Hematologic History: Reports: None Immunologic History: Reports: None Oncologic (Cancer) History: Reports: None Dermatologic History: Reports: Eczema, Other (See Below) Other Dermatologic History: Eczema treated with OTC medicines during the winter. - Infectious Disease History Infectious Disease History: Reports: Chicken Pox, Mononucleosis - Past Surgical History Head Surgeries/Procedures: Reports: None HEENT Surgical History: Reports: None Cardiovascular Surgical History: Reports: None Respiratory Surgical History: Reports: None GI Surgical History: Reports: None Female Surgical History: Reports: D&C, Other (See Below) Other Female Surgeries/Procedures: D&C secondary to SAB at age 19 Endocrine Surgical History: Reports: None Neurological Surgical History: Reports: None Musculoskeletal Surgical History: Reports: None Oncologic Surgical History: Reports: None Dermatological Surgical History: Reports: None - Past Imaging History Past Imaging History: Reports: Ultrasound (OB ultrasounds.), Venous Doppler (Left leg venous Doppler study on 05/27/11) Social & Family History - Tobacco Use Tobacco Use Status *Q: Unknown Ever Used Tobacco - Caffeine Use Caffeine Use: Reports: Coffee, Soda, Tea - Recreational Drug Use Recreational Drug Use: No - Living Situation & Occupation Living situation: Reports: Single (All pregnancies from same previous significant other.), with Family (With 3 children and new significant other) 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 Denies: Fever, Chills, Malaise, Weakness, Fatigue, Decreased Appetite, Weight Loss, Weight Gain HEENT: Reports: No Symptoms Respiratory: Reports: No Symptoms Cardiovascular: Reports: Lightheadedness. Denies: Chest Pain, Dyspnea on Exertion, Edema, Palpitations, PND, Syncope GI/Abdominal: Reports: No Symptoms : Reports: No Symptoms Musculoskeletal: Reports: No Symptoms Skin: Reports: No Symptoms Neurological: Reports: Dizziness, Other (Has history of headaches intermittently, did have a headache a week ago but she blames that on clenching her teeth during sleep). Denies: Confusion, Numbness, Paresthesia, Trouble Speaking, Difficulty Walking, Weakness, Change in Speech Psychiatric: Reports: No Symptoms Hematologic/Lymphatic: Reports: No Symptoms ED EXAM, GENERAL - Physical Exam Exam: See Below Exam Limited By: No Limitations General Appearance: Alert, WD/WN, Moderate Distress Eye Exam: Bilateral Eye: EOMI, PERRL Ears: Normal External Exam, Normal Canal, Hearing Grossly Normal, Normal TMs Nose: Normal Inspection Throat/Mouth: Normal Inspection, Normal Lips, Normal Voice, No Airway Compromise Head: Atraumatic, Normocephalic Neck: Normal Inspection, Supple, Non-Tender, Full Range of Motion Respiratory/Chest: No Respiratory Distress, Lungs Clear, Normal Breath Sounds, No Accessory Muscle Use Cardiovascular: Regular Rate, Rhythm, No Murmur GI/Abdominal: Soft, Non-Tender, No Distention (Female) Exam: Deferred Rectal (Female) Exam: Deferred Back Exam: No: CVA Tenderness (L), CVA Tenderness (R), Muscle Spasm, Paraspinal Tenderness, Vertebral Tenderness Extremities: Normal Inspection, Normal Range of Motion, Non-Tender, No Pedal Edema, Normal Capillary Refill Neurological: Alert, Oriented, CN II-XII Intact, Normal Cognition, Normal Gait, No Motor/Sensory Deficits Psychiatric: Normal Affect, Normal Mood Skin Exam: Warm, Dry, Intact, Normal Color Course - Vital Signs Last Recorded V/S: Last Vital Signs Temp 36.9 C 12/08/20 15:02 Pulse 91 12/08/20 15:02 Resp 15 12/08/20 15:02 BP 129/71 12/08/20 15:02 Pulse Ox 100 12/08/20 15:02 - Orders/Labs/Meds Labs: Laboratory Tests 12/08/20 12/08/20 12/08/20 Range/Units 14:57 15:19 15:19 WBC 9.8 (4.0-10.2) K/uL RBC 4.93 (3.77-5.09) M/uL Hgb 13.0 (11.7-15.5) g/dL Hct 38.8 (34.0-46.0) % MCV 78.7 L (84.0-98.0) fL MCH 26.4 L (28.2-33.3) pg MCHC 33.5 (31.7-36.0) g/dL RDW 14.6 H (11.2-14.1) % Plt Count 403 H (150-350) K/uL Neut % (Auto) 66.9 (45.0-80.0) % Lymph % (Auto) 26.3 (10.0-50.0) % Lea % (Auto) 4.9 (2.0-14.0) % Eos % (Auto) 1.7 (0.0-5.0) % Baso % (Auto) 0.2 (0.0-2.0) % Neut # (Auto) 6.57 (1.40-7.00) K/uL Lymph # (Auto) 2.59 (0.50-3.50) K/uL Lea # (Auto) 0.48 (0.00-1.00) K/uL Eos # (Auto) 0.17 (0.00-0.50) K/uL Baso # (Auto) 0.02 (0.00-0.20) K/uL Sodium 143 (136-145) mmol/L Potassium 3.7 (3.5-5.1) mmol/L Chloride 106 (98-107) mmol/L Carbon Dioxide 26.2 (21.0-32.0) mmol/L Anion Gap 10.8 (7-15) meq/L BUN 12 (7-18) mg/dL Creatinine 0.68 (0.51-1.17) mg/dL Est Cr Clr Drug Dosing 126.42 mL/min Estimated GFR (MDRD) > 60 mL/min Glucose 86 (70-99) mg/dL Calcium 8.8 (8.5-10.1) mg/dL Magnesium 2.2 (1.8-2.4) mg/dL Total Bilirubin 0.2 (0.2-1.0) mg/dL AST 17 (15-37) U/L ALT 29 (12-78) U/L Alkaline Phosphatase 100 (46-116) IU/L Total Protein 7.4 (6.4-8.2) g/dL Albumin 3.5 (3.4-5.0) g/dL HCG, Qual (NEGATIVE) Specimen Type Urinvoid Urine Color Yellow Urine Appearance Clear Urine pH 7.0 (5.0-9.0) Ur Specific [place] 1.020 (1.005-1.030) Urine Protein Negative (NEGATIVE) mg/dL Urine Glucose (UA) Negative (NEGATIVE) mg/dL Urine Ketones Negative (NEGATIVE) mg/dL Urine Occult Blood Negative (NEGATIVE) Urine Nitrite Negative (NEGATIVE) Urine Bilirubin Negative (NEGATIVE) Urine Urobilinogen 0.2 (0.2-1.0) E.U./dL Ur Leukocyte Esterase Negative (NEGATIVE) Urine RBC 0-5 /HPF Urine WBC 0-5 /HPF Ur Epithelial Cells Few /LPF 12/08/20 Range/Units 15:19 WBC (4.0-10.2) K/uL RBC (3.77-5.09) M/uL Hgb (11.7-15.5) g/dL Hct (34.0-46.0) % MCV (84.0-98.0) fL MCH (28.2-33.3) pg MCHC (31.7-36.0) g/dL RDW (11.2-14.1) % Plt Count (150-350) K/uL Neut % (Auto) (45.0-80.0) % Lymph % (Auto) (10.0-50.0) % Lea % (Auto) (2.0-14.0) % Eos % (Auto) (0.0-5.0) % Baso % (Auto) (0.0-2.0) % Neut # (Auto) (1.40-7.00) K/uL Lymph # (Auto) (0.50-3.50) K/uL Lea # (Auto) (0.00-1.00) K/uL Eos # (Auto) (0.00-0.50) K/uL Baso # (Auto) (0.00-0.20) K/uL Sodium (136-145) mmol/L Potassium (3.5-5.1) mmol/L Chloride (98-107) mmol/L Carbon Dioxide (21.0-32.0) mmol/L Anion Gap (7-15) meq/L BUN (7-18) mg/dL Creatinine (0.51-1.17) mg/dL Est Cr Clr Drug Dosing mL/min Estimated GFR (MDRD) mL/min Glucose (70-99) mg/dL Calcium (8.5-10.1) mg/dL Magnesium (1.8-2.4) mg/dL Total Bilirubin (0.2-1.0) mg/dL AST (15-37) U/L ALT (12-78) U/L Alkaline Phosphatase (46-116) IU/L Total Protein (6.4-8.2) g/dL Albumin (3.4-5.0) g/dL HCG, Qual Negative (NEGATIVE) Specimen Type Urine Color Urine Appearance Urine pH (5.0-9.0) Ur Specific [place] (1.005-1.030) Urine Protein (NEGATIVE) mg/dL Urine Glucose (UA) (NEGATIVE) mg/dL Urine Ketones (NEGATIVE) mg/dL Urine Occult Blood (NEGATIVE) Urine Nitrite (NEGATIVE) Urine Bilirubin (NEGATIVE) Urine Urobilinogen (0.2-1.0) E.U./dL Ur Leukocyte Esterase (NEGATIVE) Urine RBC /HPF Urine WBC /HPF Ur Epithelial Cells /LPF Meds: Medications Discontinued Medications Generic Name Dose Route Start Last Admin Trade Name Freq PRN Reason Stop Dose Admin Meclizine HCl 25 mg 12/08/20 16:01 12/08/20 16:37 Meclizine 25 Mg Tab PO 12/08/20 16:02 25 mg ONETIME ONE Administration - Re-Assessments/Exams Free Text/Narrative Re-Assessment/Exam: 12/08/20 16:00 Labs requested. Meclizine ordered. Patient declined head CT at this time to rule out intracranial changes that could be causing the episodes. 1700: UA results available. No evidence of UTI. Labs overall unremarkable. Negative test. Episodes of dizziness started shortly after Cymbalta dose doubled. Dizziness is listed a frequent side effect of this medication. Current plan is to decrease patient's dose from 60 back down to 30mg and see if her symptoms improve. Close follow up with PCP advised. Precautions reviewed. To return to ER if she has sudden worsening problems. Departure - Departure Time of Disposition: 17:10 Disposition: Home, Self-Care 01 Condition: Good Clinical Impression: Dizziness - Discharge Information *PRESCRIPTION DRUG MONITORING PROGRAM REVIEWED*: Not Applicable *COPY OF PRESCRIPTION DRUG MONITORING REPORT IN PATIENT BIBI: Not Applicable Prescriptions: DULoxetine [Cymbalta] 30 mg PO DAILY #30 cap Referrals: La Godoy PA-C [Primary Care Provider] - Forms: ED Department Discharge Additional Instructions: Stop Cymbalta 60mg and start 30mg as discussed. Do not take a pill tomorrow. Start the 30s on . See if the dizzy episodes improve with this dose change. If not, further investigation may be needed, such as a head CT. Try Meclizine (over the counter) for dizziness, 1 tablet every 6-8 hours. Follow up as needed if your symptoms become suddenly worse. Look into a mouth guard for your TMJ/Bruxism. Botox has been used to help with clenching, but you would have to look around to see if there is someone trained to do that for clenching. Follow up with ENT as planned for the chronic ear issues. Sepsis Event Note (ED) - Evaluation Sepsis Screening Result: No Definite Risk - Focused Exam Vital Signs: Vital Signs Temp Pulse Resp BP Pulse Ox 12/08/20 15:02 36.9 C 91 15 129/71 100
[2020-12-08 15:57] LABS: ANION GAP 10.8 meq/L (7-15); CHLORIDE,CL 106 mmol/L (98-107); SODIUM,NA 143 mmol/L (136-145)
[2020-12-08] MEDS ORDERED: Meclizine 25 MG Tab PO ONE (16:01)
== END 2020-12-08 18:00 | disposition home or self-care (01) ==
LOC: LL.ED 14:45
DX: R42 Dizziness and giddiness (principal); Z91.030 Bee allergy status
CPT/HCPCS: 36415; 80053; 81001; 83735; 84703; 85025; 99284; A9270-GY

== ENCOUNTER 2021-06-05 18:38 | Emergency (ER) | payer OTHER, MEDICAID ==
[2021-06-05] MEDS ORDERED: Sodium Chloride 0.9% 10 ML Syringe FLUSH PRN (20:23)
[2021-06-05] MEDS ORDERED: Morphine 2 MG/ML SYRINGE IVPUSH ONE (20:23)
[2021-06-05 20:51] LABS: ANION GAP 12.4 meq/L (7-15); CHLORIDE,CL 104 mmol/L (98-107); SODIUM,NA 140 mmol/L (136-145)
[2021-06-05] MEDS ORDERED: Lactated Ringers 1,000 ML IV ONE (20:58)
[2021-06-05] MEDS ORDERED: Acetaminophen/HYDROcodone 325-5 MG Tab PO ONE (20:58)
[2021-06-05] MEDS ORDERED: Ketorolac 30 MG/ML SDV IVPUSH ONE (21:37)
== END 2021-06-05 22:40 | disposition home or self-care (01) ==
LOC: LL.ED 18:38
DX: S00.83XA Contusion of other part of head, initial encounter (principal); S80.01XA Contusion of right knee, initial encounter; Z91.030 Bee allergy status; V49.10XA Passenger injured in collision with unspecified motor vehicles in nontraffic accident, initial encounter; Y92.410 Unspecified street and highway as the place of occurrence of the external cause
CPT/HCPCS: 36415; 70450; 71101; 73562; 80053; 82947; 84703; 85025; 96374; 99284; A9270; J1885; J7120